=== PATIENT | male | born 1970 | race Caucasian/White ===

== ENCOUNTER 2018-09-18 13:58 | Emergency (ER) | payer OTHER ==
[~2018-09-18] VITALS: Ht 175.3 cm; Wt 80.3 kg
[2018-09-18] MEDS ORDERED: LENA10CA PO (14:17)
[2018-09-18] MEDS ORDERED: STEROIDS (14:17)
[2018-09-18] MEDS ORDERED: BORT3.5V IV (14:17)
--- NOTE | 2018-09-18 14:43 | NUR ---
KASSIE WATERS AT BEDSIDE FOR MSE.
--- NOTE | 2018-09-18 16:05 | NUR ---
US TECH AT BEDSIDE.
--- NOTE | 2018-09-18 17:00 | NUR ---
Patient discharged to home in stable conditon. Written and verbal after care instructions given. Patient verbalizes understanding of instructions. ALL BELONGINGS W/ PT. PT SELF-AMBULATED W/O DIFFICULTY.
[2018-09-18 17:02] VITALS: BP 121/62
== END 2018-09-18 17:11 | disposition home or self-care (01) ==
LOC: ER 13:58
DX: I80.01 Phlebitis and thrombophlebitis of superficial vessels of right lower extremity (principal); Z79.899 Other long term (current) drug therapy
CPT/HCPCS: A4663

== ENCOUNTER 2019-02-14 09:15 | Emergency (ER) | payer OTHER ==
[~2019-02-14] VITALS: Ht 170.2 cm; Wt 78.0 kg
[~2019-02-14 09:15] MED LIST: BORT3.5V IV; LENA10CA PO; STEROIDS
[2019-02-14] MEDS ORDERED: [UNRECOGNIZED DRUG - OTHER] (09:25)
--- NOTE | 2019-02-14 11:00 | NUR ---
PATIENT WAS SEEN BY . C/O ABNORMALITY IN LOWER EXTREMITY.
[2019-02-14 11:30] LABS: BASOPHILS % (AUTO) 0.1 % (0.0-2.0); EOSINOPHILS # (AUTO) 0.1 K/uL (0.0-0.7); EOSINOPHILS % (AUTO) 0.6 % (0.0-7.0); HEMATOCRIT 39.7 % (36.7-47.1); HEMOGLOBIN 13.6 g/dL (12.5-16.3); LYMPHOCYTES # (AUTO) 0.4 K/uL (20.0-40.0); LYMPHOCYTES % (AUTO) 4.1 % (20.5-51.5); MEAN CORPUSCULAR HEMOGLOBIN 32.1 uug (23.8-33.4); MEAN CORPUSCULAR HGB CONC 34 g/dL (32.5-36.3); MEAN CORPUSCULAR VOLUME 94.1 fL (73.0-96.2); MONOCYTES # (AUTO) 0.2 K/uL (2.0-10.0); MONOCYTES % (AUTO) 1.8 % (0.0-11.0); NEUTROPHILS % (AUTO) 93.4 % (38.5-71.5); PLATELET COUNT (AUTO) 204 K/uL (152-348); RED BLOOD CELL COUNT(AUTO) 4.22 MIL/uL (4.06-5.63); WHITE BLOOD COUNT (AUTO) 8.6 K/uL (3.6-10.2)
[2019-02-14 11:37] LABS: POTASSIUM 4.1 mmol/L (3.5-5.1)
--- NOTE | 2019-02-14 12:22 | NUR ---
AWAITING TEST RESULTS. PT IS A/A/OX3 IN NO DISTRESS.
--- NOTE | 2019-02-14 13:26 | NUR ---
DC, RX AND FOLLOW UP INSTRUCTIONS GIVEN AND EXPLAINED TO PATIENT WHO STATE THEY UNDERSTAND ALL INSTRUCTIONS.
== END 2019-02-14 13:29 | disposition home or self-care (01) ==
LOC: ER 09:15
DX: I82.4Z2 Acute embolism and thrombosis of unspecified deep veins of left distal lower extremity (principal); Z79.899 Other long term (current) drug therapy
CPT/HCPCS: 36415; 85025; A4663